=== PATIENT | male | born 1995 | race Caucasian/White ===

== ENCOUNTER 2017-12-31 20:38 | Emergency (ER) | payer OTHER ==
[~2017-12-31] VITALS: Ht 180.3 cm; Wt 81.3 kg
[2017-12-31 20:39] VITALS: BP 136/82
[2017-12-31 21:11] LABS: BASOPHILS # (AUTO) 0.04 x10^3/uL (0-0.1); BASOPHILS % (AUTO) 0 % (0-1); EOSINOPHILS # (AUTO) 0.11 x10^3/uL (0-0.4); EOSINOPHILS % (AUTO) 1 % (1-7); LYMPHOCYTES # (AUTO) 2.24 x10^3/uL (1-3.4); LYMPHOCYTES % (AUTO) 24 % (22-44); MD NO; MEAN CORPUSCULAR HEMOGLOBIN 29.6 pg (27.5-34.5); MEAN CORPUSCULAR HGB CONC 34.8 g/dL (33.2-36.2); MEAN CORPUSCULAR VOLUME 84.9 fL (81-97); MEAN PLATELET VOLUME 7.7 fL (7.4-10.4); MONOCYTES # (AUTO) 0.72 x10^3/uL (0.2-0.8); MONOCYTES % (AUTO) 8 % (2-9); NEUTROPHILS # (AUTO) 6.41 x10^3/uL (1.8-6.8); NEUTROPHILS % (AUTO) 67 % (42-75); PLATELET COUNT 302 x10^3/uL (130-400); RED BLOOD COUNT 5.47 x10^6/uL (4.38-5.82); RED CELL DISTRIBUTION WIDTH 13.1 % (9.4-14.8)
[2017-12-31 21:17] LABS: ALANINE AMINOTRANSFERASE 55 U/L (12-78); ALBUMIN 4.3 g/dL (3.4-5.0); ANION GAP 8 mmol/L (5-15); CALCIUM 8.7 mg/dL (8.5-10.1); CHLORIDE 105 mmol/L (98-107); CREATININE 1.05 mg/dL (0.7-1.3)
[2017-12-31 21:19] LABS: ALKALINE PHOSPHATASE 87 U/L (45-117); BILIRUBIN,TOTAL 0.5 mg/dL (0.2-1.0); TOTAL PROTEIN 8.2 g/dL (6.4-8.2)
== END 2017-12-31 21:46 | disposition home or self-care (01) ==
LOC: ED 21:30
DX: K58.0 Irritable bowel syndrome with diarrhea (principal); K58.8 Other irritable bowel syndrome
CPT/HCPCS: 36415; 74021; 80053; 83690; 85025; 99285

== ENCOUNTER 2018-12-18 07:52 | Emergency (ER) | payer OTHER ==
[~2018-12-18] VITALS: Ht 180.3 cm; Wt 76.8 kg
--- NOTE | 2018-12-18 08:28 | NUR ---
Pt to room from lobby.
--- NOTE | 2018-12-18 08:49 | NUR ---
ASSUMED CARE OF PT. PT PRESENTS TO ED WITH C/O HEMATEMESIS SINCE LAST NIGHT. STATES LAST VOMITTED BLOOD RIGHT BEFORE ARRIVAL. PT STATES HE IS A WEEKLY DRINKER AND DRANK 7 SHOTS LAST NIGHT. PT UNSURE IF HE HAS HAD BLOOD IN HIS STOOL. PT WITH EPIGASTRIC PAIN. MILD AMOUNT OF DISTRESS NOTED AT THIS TIME. BREATHING REGULAR AND UNLABORED. WILL CONTINUE TO MONITOR.
[2018-12-18] MEDS ORDERED: ONDANSETRON ODT 4 MG ONE (08:53)
[2018-12-18] MEDS ORDERED: SODIUM CHLORIDE 0.9% 1,000ML IVBOLUS ONE (09:00)
[2018-12-18] MEDS ORDERED: SODIUM CHLORIDE FLUSH 10ML SYR IVF ONE (09:00)
[2018-12-18] MEDS ORDERED: ONDANSETRON ODT 4 MG PO ONE (09:00)
[2018-12-18 09:02] LABS: BASOPHILS % (AUTO) 0 % (0-1); EOSINOPHILS # (AUTO) 0.03 x10^3/uL (0-0.4); EOSINOPHILS % (AUTO) 0 % (1-7); LYMPHOCYTES # (AUTO) 0.29 x10^3/uL (1-3.4); LYMPHOCYTES % (AUTO) 3 % (22-44); MD NO; MEAN CORPUSCULAR HEMOGLOBIN 29.6 pg (27.5-34.5); MEAN CORPUSCULAR HGB CONC 34.4 g/dL (33.2-36.2); MEAN CORPUSCULAR VOLUME 86.2 fL (81-97); MEAN PLATELET VOLUME 7.5 fL (7.4-10.4); MONOCYTES # (AUTO) 0.33 x10^3/uL (0.2-0.8); MONOCYTES % (AUTO) 4 % (2-9); NEUTROPHILS % (AUTO) 93 % (42-75); PLATELET COUNT 274 x10^3/uL (130-400); RED BLOOD COUNT 5.91 x10^6/uL (4.38-5.82); RED CELL DISTRIBUTION WIDTH 13.4 % (9.4-14.8)
--- NOTE | 2018-12-18 09:05 | NUR ---
IV STARTED. IVF STARTED. PT MEDICATED PER MAR. 5 RIGHTS VERIFIED PRIOR.
[2018-12-18 09:14] LABS: ALANINE AMINOTRANSFERASE 25 U/L (12-78); ALBUMIN 4.5 g/dL (3.4-5.0); ANION GAP 8 mmol/L (5-15); CHLORIDE 112 mmol/L (98-107); CREATININE 1.43 mg/dL (0.7-1.3)
[2018-12-18 09:16] LABS: ALKALINE PHOSPHATASE 104 U/L (45-117); TOTAL PROTEIN 8.1 g/dL (6.4-8.2)
[2018-12-18 09:28] VITALS: BP 117/70
--- NOTE | 2018-12-18 10:00 | NUR ---
PT GIVEN WARM BLANKET AND PO FLUID.
--- NOTE | 2018-12-18 10:09 | NUR ---
PT ABLE TO KEEP FLUIDS DOWN.
== END 2018-12-18 10:48 | disposition home or self-care (01) ==
LOC: ED 10:20
DX: K29.20 Alcoholic gastritis without bleeding (principal); F10.10 Alcohol abuse, uncomplicated; J45.909 Unspecified asthma, uncomplicated; Y90.9 Presence of alcohol in blood, level not specified
CPT/HCPCS: 36415; 80053; 83690; 85025; 96360; 99283; J7030; Q0162